=== PATIENT | female | born 1940 | race Caucasian/White ===

== ENCOUNTER → 2017-03-17 | Outpatient (CLI) | payer OTHER ==
[~2017-03-17] MED LIST: AMBI10TA PO; AMLO5TAB96 PO; CHLORHEXIDINE GLUCONATE 2 % 1 PACK (2 CLOTHS) TOPICAL PRN; LACTATED RINGER'S 1000 ML IV PRN; METOPROLOL TARTRATE 25 MG TAB PO PRN; POVIDONE IODINE 5% (ANTISEPSIS KIT) 4 APPLICATIONS EACH NARE PRN; PRIL20CA PO; SODIUM CHLORID 0.9% 500 ML IV PRN
== END ==
LOC: HEND 06:47
PROVIDERS: ATTEND Hospitalist
DX: R13.10 Dysphagia, unspecified (principal); K22.4 Dyskinesia of esophagus
CPT/HCPCS: 91010

== ENCOUNTER 2017-05-06 13:20 | Emergency (ER) | payer OTHER ==
[~2017-05-06] VITALS: Ht 162.6 cm; Wt 68.0 kg
[~2017-05-06 13:20] MED LIST changes: -CHLORHEXIDINE GLUCONATE 2 % 1 PACK (2 CLOTHS) TOPICAL PRN; -LACTATED RINGER'S 1000 ML IV PRN; -METOPROLOL TARTRATE 25 MG TAB PO PRN; -POVIDONE IODINE 5% (ANTISEPSIS KIT) 4 APPLICATIONS EACH NARE PRN; -SODIUM CHLORID 0.9% 500 ML IV PRN
[2017-05-06 13:57] VITALS: BP 161/73; PULSE 79; RESP 17; TEMP 97.9; O2SAT 96
[2017-05-06] MEDS ORDERED: DEXAMETHASONE SOD PHOS 20 MG/5 ML VIAL IM ONE (14:30)
[2017-05-06] MEDS ORDERED: KETOROLAC TROMETHAMINE 30 MG/ML (IVP) VIAL IV PUSH ONE (14:30)
[2017-05-06] MEDS ORDERED: ORPHENADRINE INJ 60 MG/2 ML AMP IV ONE (14:30)
[2017-05-06 15:52] LABS: BILIRUBIN, URINE NEG (NEG); BLOOD, URINE NEG (NEG); GLUCOSE,URINE NEG (NEG); KETONE, URINE NEG (NEG); NITRITE,URINE NEG (NEG); PH, URINE 5.5 (5.0-8.5); SQUAMOUS EPITHELIAL CELL URINE 2 /hpf (0-5); URINE COLOR LIGHT-YELLOW (YELLW/STRAW); URINE LEUKOCYTE ESTERASE TRACE (NEG)
--- NOTE | 2017-05-06 15:58 | PD ---
HPI Chief Complaint: Back/ Neck Pain or Injury Time Seen by Provider: 14:19 Travel History International Travel<30 days: No Contact w/Intl Traveler<30days: No Traveled to known affect area: No History of Present Illness HPI Patient is a 77-year-old female presenting to the emergency room for evaluation of low back pain. Patient states it started 3 weeks ago, there is no preceding injury or trauma. Patient reports that she was unable to see her primary doctor and was sent to the emergency department for evaluation. Patient denies any numbness, weakness in extremities, there is no bladder or bowel incontinence , no radiation of pain down her legs. She denies any fevers or chills. She further denies any dysuria. Patient states the pain just started, is localized to the lower back just over the hips and radiates down to her tailbone. Pain is worse with movement, symptom onset was gradual, symptom severity is moderate , there are no alleviating factors. Pain is exacerbated with movement. Patient has tried tramadol with no relief of her symptoms. PFSH Past Medical History Diabetes: Yes Patient Takes Glucophage: Yes (METFORMIN BID ) Endocrine: No Gastrointestinal Disorders: Yes Genitourinary: No Hepatitis: No Hiatal Hernia: Yes Hypertension: Yes Immune Disorder: No Medical other: Yes Musculoskeletal: Yes (MUSCLE PAIN) Neurologic: No Psychiatric: No Reproductive: No Respiratory: No Thyroid Disease: No Past Surgical History Abdominal Surgery: No AICD: No Cardiac Surgery: No Ear Surgery: No Endocrine Surgery: No Eye Surgery: No Genitourinary Surgery: No Gynecologic Surgery: No Joint Replacement: No Oral Surgery: No Pacemaker: No Thoracic Surgery: No Other Surgery: Yes Social History Alcohol Use: No Tobacco Use: No Substance Use: No Allergies-Medications (Allergen,Severity, Reaction): Coded Allergies: No Known Allergies (Unverified Adverse Reaction, Unknown, 05/06/17) Reported Meds & Prescriptions Reported Meds & Active Scripts Active Review of Systems Except as stated in HPI: all other systems reviewed are Neg Gastrointestinal: No: Abdominal Pain Musculoskeletal: Positive: Myalgias, Cramping, Pain Neurologic: No: Focal Abnormalities, Paresthesia, Sensory Disturbance Physical Exam Narrative GENERAL: Well-developed, well-nourished, alert elderly female. Presenting in no acute distress. SKIN: Warm and dry. HEAD: Atraumatic. Normocephalic. EYES: Pupils equal and round. No scleral icterus. No injection or drainage. ENT: No nasal bleeding or discharge. Mucous membranes pink and moist. NECK: Trachea midline. No JVD. CARDIOVASCULAR: Regular rate and rhythm. RESPIRATORY: No accessory muscle use. Clear to auscultation. Breath sounds equal bilaterally. GASTROINTESTINAL: Abdomen soft, non-tender, nondistended. Hepatic and splenic margins not palpable. MUSCULOSKELETAL: Extremities without clubbing, cyanosis, or edema. No obvious deformities. Mild tenderness to palpation paraspinal musculature in the lumbar region. NEUROLOGICAL: Awake and alert. No obvious cranial nerve deficits. Motor grossly within normal limits. Five out of 5 muscle strength in the arms and legs. Normal speech. PSYCHIATRIC: Appropriate mood and affect; insight and judgment normal. Data Data Last Documented VS Vital Signs Date Time Temp Pulse Resp B/P (MAP) Pulse Ox O2 Delivery O2 Flow Rate FiO2 05/06/17 13:57 97.9 79 17 161/73 (102) [address] Lumb Spine W/O Contrast (05/06/17 ) Ct Pelvis W/O Iv Contrast (05/06/17 ) Iv Access Insert/Monitor (05/06/17 14:30) Urinalysis - C+S If Indicated (05/06/17 14:30) Ketorolac Inj (Toradol Inj) (05/06/17 14:30) Orphenadrine Inj (Norflex Inj) (05/06/17 14:30) Dexamethasone Inj (Decadron Inj) (05/06/17 14:30) Labs Laboratory Tests Test 05/06/17 14:45 Urine Color LIGHT-YELLOW Urine Turbidity CLEAR Urine pH 5.5 Urine Specific [place] 1.009 Urine Protein NEG mg/dL Urine Glucose (UA) NEG mg/dL Urine Ketones NEG mg/dL Urine Occult Blood NEG Urine Nitrite NEG Urine Bilirubin NEG Urine Urobilinogen LESS THAN 2.0 MG/DL Urine Leukocyte Esterase TRACE Urine RBC LESS THAN 1 /hpf Urine WBC 1 /hpf Urine Squamous Epithelial Cells 2 /hpf Microscopic Urinalysis Comment CULT NOT INDICATED MDM Medical Decision Making Medical Screen Exam Complete: Yes Emergency Medical Condition: Yes Interpretation(s) Laboratory Tests Test 05/06/17 14:45 Urine Color LIGHT-YELLOW Urine Turbidity CLEAR Urine pH 5.5 Urine Specific [place] 1.009 Urine Protein NEG mg/dL Urine Glucose (UA) NEG mg/dL Urine Ketones NEG mg/dL Urine Occult Blood NEG Urine Nitrite NEG Urine Bilirubin NEG Urine Urobilinogen LESS THAN 2.0 MG/DL Urine Leukocyte Esterase TRACE Urine RBC LESS THAN 1 /hpf Urine WBC 1 /hpf Urine Squamous Epithelial Cells 2 /hpf Microscopic Urinalysis Comment CULT NOT INDICATED Vital Signs Date Time Temp Pulse Resp B/P (MAP) Pulse Ox O2 Delivery O2 Flow Rate FiO2 05/06/17 13:57 97.9 79 17 161/73 (102) 96 Differential Diagnosis Muscle strain versus muscle spasm versus radiculopathy versus degenerative disc disease versus less likely fracture versus other Narrative Course Patient is well-appearing 77-year-old female presenting for evaluation of mid to lower back pain. There are no focal deficits on exam. Patient's vital signs are stable. Exam appears consistent with muscular skeletal strain. Patient is only taken Tylenol with no improvement. Will check a urinalysis to rule out UTI, CT scans ordered and pending. Patient was given Norflex and Toradol for pain. CT scan lumbar spine shows minimal diffuse disc bulges at L1-L2, L2-L3, L3-L4, L4-L5, and L5-S1 without spinal stenosis or significant neural foraminal narrowing. Incidentally there is a 2.3 cm left renal cyst. CT scan of the pelvis shows degenerative changes of lower lumbar spine. No acute abnormality is evident. Urinalysis unremarkable. Patient reports improvement in her symptoms after administration of Toradol, Norflex and dexamethasone. She was encouraged to follow-up with her primary doctor, continue gentle range of motion exercises, apply warm heat, avoid bed rest. She is encouraged to take medications as directed. She was encouraged to return to emergency department any new or worsening symptoms. Patient was reassured at this time that there were no acute findings. Patient has been verbalized understanding of discharge instructions. Patient stable for discharge. Diagnosis Primary Impression: Bulging lumbar disc Additional Impression: Back pain Qualified Codes: M54.9 - Dorsalgia, unspecified Referrals: Primary Care Physician 1 week Patient Instructions: Back Pain (ED), Degenerative Disc Disease (ED), General Instructions Additional Instructions: Follow-up with your primary doctor Continue range of motion exercises, avoid bed rest, avoid exacerbating activities, apply warm heat Return to emergency department for any new or worsening symptoms Take medications as directed Med/Other Pt SpecificInfo: Prescription(s) given Scripts Cyclobenzaprine (Flexeril) 10 Mg Tab 10 MG PO TID Y for MUSCLE SPASM, #21 TAB 0 Refills Prov: Celina Wheeler 05/06/17 Meloxicam (Meloxicam) 15 Mg Tab 15 MG PO DAILY Y for PAIN SCALE 1 TO 10, #30 TAB 0 Refills Prov: Celina Wheeler 05/06/17 Disposition: 01 DISCHARGE HOME Condition: Stable Celina Wheeler May 06, 2017 15:58
--- NOTE | 2017-05-06 16:15 | RADRPT ---
EXAM DATE/TIME: 05/06/2017 15:54 [facility] COMPARISON: No previous studies available for comparison. INDICATIONS : Bilateral lower back pain radiating down to buttocks. ORAL CONTRAST: No oral contrast ingested. RADIATION DOSE: 11.02 CTDIvol (mGy) MEDICAL HISTORY : Hypertension. Hernia, hiatal. diabetes SURGICAL HISTORY : None. ENCOUNTER: Initial ACUITY: 1 day PAIN SCALE: 6/10 LOCATION: Bilateral Lower back TECHNIQUE: Volumetric scanning of the pelvis was performed. Using automated exposure control and adjustment of the mA and/or kV according to patient size, radiation dose was kept as low as reasonably achievable t o obtain optimal diagnostic quality images. DICOM format image data is available electronically for review and comparison. FINDINGS: BOWEL/MESENTERY: The visualized small and large bowel demonstrate no acute abnormality. There is no free fluid. BLADDER: There is no wall thickening or mass. RETROPERITONEUM: There is no aneurysm or lymphadenopathy. REPRODUCTIVE: Within normal limits. INGUINAL: There is no lymphadenopathy or hernia. MUSCULOSKELETAL: There are mild degenerative changes in the facet joints at L4/5 and L5/S1. The osseous structures are otherwise intact. No acute fracture is seen. CONCLUSION: Degenerative changes of the lower lumbar spine. No acute abnormality is evident. Donte Gannon MD on May 06, 2017 at 16:10 Board Certified Radiologist. This report was verified electronically.
--- NOTE | 2017-05-06 16:28 | RADRPT ---
EXAM DATE/TIME: 05/06/2017 15:54 [facility] COMPARISON: No previous studies available for comparison. INDICATIONS : Bilateral lower back pain radiating down to buttocks. RADIATION DOSE: 19.00 CTDIvol (mGy) MEDICAL HISTORY : Hypertension. Hernia, hiatal. diabetes SURGICAL HISTORY : None. ENCOUNTER: Initial ACUITY: 1 day PAIN SCALE: 6/10 LOCATION: Bilateral lower back TECHNIQUE: Volumetric scanning of the lumbar spine was performed. Multiplanar reconstructions in the sagittal, coronal and oblique axial planes were performed. Using automated exposure control and adjustment of the mA and/or kV according to patient size, radiation dose was kept as low as reasonably achievable t o obtain optimal diagnostic quality images. DICOM format image data is available electronically for review and comparison. FINDINGS: VERTEBRAE: Normal vertebral body height. ALIGNMENT: No evidence of subluxation. T12-L1: The thecal sac has a normal diameter. No evidence of disc bulge or protrusion. The neural foramina are patent bilaterally. L1-L2: The thecal sac has a normal diameter. Minimal diffuse disc bulge is noted. No evidence of disc protr usion. The neural foramina are patent bilaterally. L2-L3: The thecal sac has a normal diameter. Minimal diffuse disc bulge is noted. No evidence of disc protr usion. The neural foramina are patent bilaterally. L3-L4: The thecal sac has a normal diameter. Minimal diffuse disc bulge is noted. No evidence of disc protr usion. The neural foramina are patent bilaterally. L4-L5: The thecal sac has a normal diameter. Minimal diffuse disc bulge is noted. No evidence of disc protr usion. The neural foramina are patent bilaterally. L5-S1: The thecal sac has a normal diameter. Minimal diffuse disc bulge is noted. No evidence of disc protr usion. The neural foramina are patent bilaterally. CONCLUSION: 1. Minimal diffuse disc bulges at L1-2, L2-3, L3-4, 4-5 and L5-S1 without spinal stenosis or signific ant neural foraminal narrowing. 2. 2.3 cm left renal cyst. Santhosh Armstrong MD on May 06, 2017 at 16:24 Board Certified Radiologist. This report was verified electronically.
[2017-05-06] MEDS ORDERED: CYCL10TA PO (16:49)
[2017-05-06] MEDS ORDERED: MELO15TA20 PO (16:49)
== END 2017-05-06 17:12 | disposition home or self-care (01) ==
LOC: NEPE 13:20
DX: M51.26 Other intervertebral disc displacement, lumbar region (principal); M54.9 Dorsalgia, unspecified; E11.9 Type 2 diabetes mellitus without complications; I10 Essential (primary) hypertension
CPT/HCPCS: 72131; 72192; 81001; 96372; 96374; 96375; 99284; J1100; J1885; J2360

== ENCOUNTER → 2017-07-16 | Outpatient (CLI) | payer OTHER ==
[~2017-07-16] VITALS: Ht 162.6 cm; Wt 68.4 kg
[~2017-07-16] MED LIST changes: -AMBI10TA PO; +AMBI5TAB PO; +AMLO5TAB2 PO; -AMLO5TAB96 PO; +BETH10TA2 PO; +CYCL10TA PO; +GABA300C5 PO; +GABA600T PO; +HYDR-3516 PO; +LIDOCAINE HCL 1% PF 5 ML SYRINGE OTHER ONE; +LOSA25TA PO; +MELO15TA20 PO; +METF500T PO; +OMEP20TA93 PO; +PANT20TA2 PO; -PRIL20CA PO; +PROPOFOL 200 MG/20 ML AMP IV ONE; +TRAZ50TA12 PO; +XARE15TA PO; +XARE20TA PO
--- NOTE | 2017-07-16 13:04 | PD.PROCEDR ---
GI Procedure PROCEDURE PERFORMED EGD followed by endoscopic ultrasound with fine-needle aspiration INDICATION FOR PROCEDURE Dilated pancreatic duct PROCEDURE: The procedure, risks and benefits were discussed with Patient/POA and informed consent was obtained. Anesthesia sedated Patient with Diprivan. Patient was placed in the left lateral decubitus position. EGD: The Pentax videoscope was introduced through the oropharynx and advanced to the second portion of the duodenum under direct visualization. Retroflexion was performed in the stomach. FINDINGS: The esophagus this was normal The stomach this was normal The duodenum this was normal EUS: The Pentax videoscope was introduced through the oropharynx and advanced to the second portion of the duodenum . FINDINGS: The pancreatic parenchyma was carefully evaluated the pancreatic duct appeared to be dilated from the pancreatic neck to the tail the pancreatic body and tail appear to be unremarkable and within normal limits there was a small one by one mildly hypoechoic lesion of unclear significance abutting the portal vein but not invading in the portal vein appeared to be intact FNA was performed otherwise pancreatic head was unremarkable Common bile duct was unremarkable No lymphadenopathy ESTIMATED BLOOD LOSS: Minimal SPECIMENS REMOVED: Pancreatic biopsy COMPLICATIONS: None IMPRESSION: Dilated pancreatic duct Pancreatic mass PLAN: Await pathology Follow-up in clinic in 2-3 weeks Kirill Kelley MD July 16, 2017 13:04
[2017-07-16 13:15] VITALS: BP 170/77; PULSE 71; RESP 18; TEMP 97.2; O2SAT 98
--- NOTE | 2017-07-17 07:22 | EKG ---
Date Performed: 07/16/2017 Time Performed: 10:03:17 PTAGE: 77 years EKG: Sinus rhythm NORMAL ECG PREVIOUS TRACING : 08/18/2011 12.41 DOCTOR: Michael Figueroa Interpretating Date/Time 07/17/2017 07:19:36
== END ==
LOC: HSDC 08:52 → EDSTATUS 11:00
PROVIDERS: ATTEND Internal Medicine Gastroenterology
DX: K86.89 Other specified diseases of pancreas (principal); I10 Essential (primary) hypertension; E11.9 Type 2 diabetes mellitus without complications; K44.9 Diaphragmatic hernia without obstruction or gangrene
CPT/HCPCS: 43242; 88112; 88305; 93005

== ENCOUNTER 2017-07-19 09:16 | Inpatient (IN) | payer OTHER, MEDICARE ==
[2017-07-19] VITALS (8 sets, daily range): BP systolic 131–185; BP diastolic 63–84; PULSE 71–86; RESP 16–20; TEMP 97.9–98.9; O2SAT 94–96
[~2017-07-19] VITALS: Ht 162.6 cm; Wt 71.0 kg
[~2017-07-19 09:16] MED LIST changes: -GABA300C5 PO; -HYDR-3516 PO; -LIDOCAINE HCL 1% PF 5 ML SYRINGE OTHER ONE; -PANT20TA2 PO; -PROPOFOL 200 MG/20 ML AMP IV ONE; -XARE15TA PO; -XARE20TA PO
[2017-07-19] MEDS ORDERED: IOHEXOL 350 MG/ML 10 ML VIAL (for RAD DIAG) IVCONTRAST ONE (09:17)
[2017-07-19] MEDS ORDERED: SODIUM CHLORIDE 0.9% FLUSH 10 ML FLUSH IV FLUSH PRN ×2 (09:45→14:00)
[2017-07-19] MEDS ORDERED: GABA300C5 PO (10:03)
[2017-07-19] MEDS ORDERED: PANT20TA2 PO (10:03)
[2017-07-19] MEDS ORDERED: MORPHINE SULFATE 4 MG/ML INJ IV ONE (10:15)
[2017-07-19] MEDS ORDERED: MORPHINE SULFATE 2 MG/ML SYRINGE IV PUSH ONE (10:15)
[2017-07-19 10:30] LABS: AUTOMATED NEUTROPHIL # 7.3 TH/MM3 (1.8-7.7); BASOPHIL % 0.2 % (0.0-2.0); EOSINOPHIL # 0.2 TH/MM3 (0-0.4); EOSINOPHIL % 1.6 % (0.0-4.0); HEMATOCRIT 41.6 % (35.0-46.0); HEMOGLOBIN 13.8 GM/DL (11.6-15.3); LYMPH % 19.9 % (9.0-44.0); LYMPHOCYTE # 2.1 TH/MM3 (1.0-4.8); MEAN CELL VOLUME 86.4 FL (80.0-100.0); MEAN CORPUSCULAR HEMOGLOBIN 28.8 PG (27.0-34.0); MEAN CORPUSCULAR HGB CONC 33.3 % (32.0-36.0); MONO % 7.1 % (0.0-8.0); MONOCYTE # 0.7 TH/MM3 (0-0.9); NEUT % 71.2 % (16.0-70.0); PLATELET COUNT 231 TH/MM3 (150-450); RED BLOOD COUNT 4.81 MIL/MM3 (4.00-5.30); RED CELL DISTRIBUTION WIDTH 14.3 % (11.6-17.2); WHITE BLOOD COUNT 10.3 TH/MM3 (4.0-11.0)
--- NOTE | 2017-07-19 10:30 | PD ---
HPI Chief Complaint: Abdominal Pain Time Seen by Provider: 09:38 Travel History International Travel<30 days: No Contact w/Intl Traveler<30days: No Traveled to known affect area: No History of Present Illness HPI Patient is a 77-year-old female presents emergency department for evaluation of epigastric pain radiating up into her chest. Patient 3 days ago had a endoscopic ultrasound-guided biopsy of her pancreas as a mass was discovered she was being worked up for back pain. Patient states occasionally chest pain spasms and radiates to her back. She states initially she went to an orthopedic surgeon who did a CAT scan diagnosing her only with degenerative disc disease, she insisted on an MRI which revealed a pancreas mass. She was referred here by Dr. Kelley for evaluation and she is having increased abdominal pain no nausea no vomiting she has been able to tolerate p.o. but she has not eaten this morning because she knew she was coming in, no shortness of breath no blood in the stool no diarrhea no weight loss peer PFSH Past Medical History Cancer: No Cardiovascular Problems: No Diabetes: Yes Patient Takes Glucophage: Yes Endocrine: No Gastrointestinal Disorders: Yes Genitourinary: No Hepatitis: No Hiatal Hernia: Yes Hypertension: Yes Immune Disorder: No Medical other: Yes Musculoskeletal: Yes (MUSCLE PAIN) Neurologic: No Psychiatric: No Reproductive: No Respiratory: No Thyroid Disease: No ?: Not Past Surgical History Abdominal Surgery: No AICD: No Cardiac Surgery: No Ear Surgery: No Endocrine Surgery: No Eye Surgery: No Genitourinary Surgery: No Gynecologic Surgery: Yes (COLD KNIFE BIOPSY) Joint Replacement: No Oral Surgery: No Pacemaker: No Thoracic Surgery: No Other Surgery: Yes Social History Alcohol Use: No Tobacco Use: No Substance Use: No Allergies-Medications (Allergen,Severity, Reaction): Coded Allergies: No Known Allergies (Unverified Allergy, Unknown, 07/16/17) Reported Meds & Prescriptions Reported Meds & Active Scripts Active Flexeril (Cyclobenzaprine HCl) 10 Mg Tab 10 Mg PO TID PRN Reported Pantoprazole (Pantoprazole Sodium) 20 Mg Tab 20 Mg PO BID Gabapentin 300 Mg Cap 300 Mg PO DAILY Ambien (Zolpidem Tartrate) 5 Mg Tab 5 Mg PO HS PRN Trazodone (Trazodone HCl) 50 Mg Tab 25 Mg PO HS Amlodipine (Amlodipine Besylate) 5 Mg Tab 5 Mg PO HS Metformin (Metformin HCl) 500 Mg Tab 500 Mg PO HS With a meal Gabapentin 600 Mg Tab 600 Mg PO BID Losartan (Losartan Potassium) 25 Mg Tab 25 Mg PO DAILY Bethanechol 10 Mg Tab 10 Mg PO BID Metformin (Metformin HCl) 500 Mg Tab 1,000 Mg PO DAILY Review of Systems Except as stated in HPI: all other systems reviewed are Neg Physical Exam Narrative GENERAL: Well-developed well-nourished no obvious distress, quite pleasant peer SKIN: Focused skin assessment warm/dry. HEAD: Atraumatic. Normocephalic. EYES: Pupils equal and round. No scleral icterus. No injection or drainage. ENT: No nasal bleeding or discharge. Mucous membranes pink and moist. NECK: Trachea midline. No JVD. CARDIOVASCULAR: Regular rate and rhythm. No murmur appreciated. RESPIRATORY: No accessory muscle use. Clear to auscultation. Breath sounds equal bilaterally. GASTROINTESTINAL: Abdomen soft, the abdomen is really minimally tender throughout all 4 quadrants but particularly the epigastric region. There is no rebound no percussive tenderness, nondistended. Hepatic and splenic margins not palpable. MUSCULOSKELETAL: No obvious deformities. No clubbing. No cyanosis. No edema. NEUROLOGICAL: Awake and alert. No obvious cranial nerve deficits. Motor grossly within normal limits. Normal speech. PSYCHIATRIC: Appropriate mood and affect; insight and judgment normal. Data Data Last Documented VS Vital Signs Date Time Temp Pulse Resp B/P (MAP) Pulse Ox O2 Delivery O2 Flow Rate FiO2 07/19/17 13:07 19 07/19/17 10:03 86 185/84 (117) 96 Room Air 07/19/17 09:32 98.9 Orders Orders Complete Blood Count With Diff (07/19/17 09:41) Comprehensive Metabolic Panel (07/19/17 09:41) Lipase (07/19/17 09:41) Iv Access Insert/Monitor (07/19/17 09:41) Ecg Monitoring (07/19/17 09:41) Oximetry (07/19/17 09:41) Sodium Chloride 0.9% Flush (Ns Flush) (07/19/17 09:45) Electrocardiogram (07/19/17 09:41) Morphine Inj (Morphine Inj) (07/19/17 10:15) Cta Thor Abd Aorta W Iv C W3d (07/19/17 ) Morphine Inj (Morphine Inj) (07/19/17 10:15) Morphine Inj (Morphine Inj) (07/19/17 12:00) Iohexol 350 Inj (Omnipaque 350 Inj) (07/19/17 09:17) Act Partial Throm Time (Ptt) (07/19/17 13:44) Prothrombin Time / Inr (Pt) (07/19/17 13:44) Admit Order (Ed Use Only) (07/19/17 ) Labs Laboratory Tests Test 07/19/17 09:50 White Blood Count 10.3 TH/MM3 Red Blood Count 4.81 MIL/MM3 Hemoglobin 13.8 GM/DL Hematocrit 41.6 % Mean Corpuscular Volume 86.4 FL Mean Corpuscular Hemoglobin 28.8 PG Mean Corpuscular Hemoglobin Concent 33.3 % Red Cell Distribution Width 14.3 % Platelet Count 231 TH/MM3 Mean Platelet Volume 9.0 FL Neutrophils (%) (Auto) 71.2 % Lymphocytes (%) (Auto) 19.9 % Monocytes (%) (Auto) 7.1 % Eosinophils (%) (Auto) 1.6 % Basophils (%) (Auto) 0.2 % Neutrophils # (Auto) 7.3 TH/MM3 Lymphocytes # (Auto) 2.1 TH/MM3 Monocytes # (Auto) 0.7 TH/MM3 Eosinophils # (Auto) 0.2 TH/MM3 Basophils # (Auto) 0.0 TH/MM3 CBC Comment DIFF FINAL Differential Comment Blood Urea Nitrogen 13 MG/DL Creatinine 0.94 MG/DL Random Glucose 139 MG/DL Total Protein 8.6 GM/DL Albumin 3.9 GM/DL Calcium Level 9.6 MG/DL Alkaline Phosphatase 62 U/L Aspartate Amino Transf (AST/SGOT) 38 U/L Alanine Aminotransferase (ALT/SGPT) 39 U/L Total Bilirubin 0.6 MG/DL Sodium Level 138 MEQ/L Potassium Level 4.8 MEQ/L Chloride Level 103 MEQ/L Carbon Dioxide Level 27.3 MEQ/L Anion Gap 8 MEQ/L Estimat Glomerular Filtration Rate 58 ML/MIN Lipase 5965 U/L [facility] Medical Decision Making Medical Screen Exam Complete: Yes Emergency Medical Condition: Yes Differential Diagnosis Pancreatic mass, postprocedural pancreatitis, aortic dissection, dehydration, esophageal perforation, pancreatic hematoma Narrative Course Patient was room to the emergency department, discussed with Dr. Benoit about the patient's workup and with her chest pain radiating to her back spasmodic and intermittent I think aortic dissection needs to be considered as well. I have recommended aortic protocol CT scan, discussed this with radiology and they states that this will show a hematoma in the pancreas which is Dr. Laboy' s primary concern. The patient's labs do show an elevated lipase at 5900 consistent with a post procedural pancreatitis. She has not had any vomiting and appears fairly well-hydrated in the emergency department. Radiology report does not reveal any obvious pancreatic mass, this will have to be further looked at by Dr. Givens's group. However the CT scan did show small volume pulmonary embolism. Patient was ultimately discarded with Dr. Deanne Brantley, I am still waiting the coags, he will anticoagulate the patient likely with Lovenox given her normal kidney function. She will be admitted to the hospital consultation with Dr. Laboy. All the results were discussed with the patient and she is agreeable to plan peer Diagnosis Primary Impression: Pancreatitis Qualified Codes: K85.00 - Idiopathic acute pancreatitis without necrosis or infection Additional Impression: Pulmonary embolus Qualified Codes: I26.99 - Other pulmonary embolism without acute cor pulmonale Admitting Information Admitting Physician Requests: Admit Condition: Stable Santhosh Boswell MD July 19, 2017 10:30
[2017-07-19 11:01] LABS: ALKALINE PHOSPHATASE 62 U/L (45-117); ALT (GPT) 39 U/L (10-53); TOTAL BILIRUBIN ADULT 0.6 MG/DL (0.2-1.0); TOTAL PROTEIN 8.6 GM/DL (6.4-8.2)
[2017-07-19 11:08] LABS: ALBUMIN 3.9 GM/DL (3.4-5.0); AST (GOT) 38 U/L (15-37); BICARBONATE 27.3 MEQ/L (21.0-32.0); BLOOD UREA NITROGEN 13 MG/DL (7-18); CALCIUM 9.6 MG/DL (8.5-10.1); CHLORIDE 103 MEQ/L (98-107); CREATININE 0.94 MG/DL (0.50-1.00); GLOMERULAR FILTRATION RATE 58 ML/MIN (>89); GLUCOSE,RANDOM 139 MG/DL (74-106); SODIUM (NA) 138 MEQ/L (136-145)
[2017-07-19] MEDS ORDERED: MORPHINE SULFATE 4 MG/ML INJ IV PUSH ONE (12:00)
--- NOTE | 2017-07-19 13:29 | RADRPT ---
EXAM DATE: 07/19/2017 1:15 PM EDT AGE/SEX: 77 years / Female INDICATIONS: Chest and epigastric pain for 3 days. CLINICAL DATA: This is the patient's initial encounter. Patient reports that signs and symptoms have been present for 1 day and indicates a pain score of 6/10. MEDICAL/SURGICAL HISTORY: Hypertension. Diabetes. Gastroesophageal reflux disease. Hiatal hernia . None. RADIATION DOSE: 6.80 CTDI (mGy) COMPARISON: None. TECHNIQUE: Volumetric scanning was performed using a multi-row detector CT scanner during bolus infu ashley of 99 ml Omnipaque 350 (iohexol) nonionic water-soluble contrast as a single exam dose. The da ta was post processed with a variety of visualization algorithms including full volume maximum intens ity projection, multi-planar sliding thin slab reformation, curved planar reformation, and surface re ndering techniques. Using automated exposure control and adjustment of the mA and/or kV according to patient size, radiation dose was kept as low as reasonably achievable to obtain optimal diagnostic q uality images. FINDINGS: THORACIC/ABDOMINAL AORTA: The aorta is normal in caliber and course. Scattered calcified atheromatous plaque. No dissection, aneurysm, or hemodynamically significant stenosis. Inflow vessels are patent bilaterally. The celiac, SMA, CRUZ, and renal arteries are patent. 2 renal arteries supply the right k idney. A single renal artery supplies the left. HEART AND MEDIASTINUM: There is a filling defect involving the proximal segmental branches of the rig ht lower lobe consistent with acute pulmonary emboli. The remaining pulmonary arteries are unremarkab le. Heart is normal in size. No pericardial effusion. No mass or adenopathy. LUNG PARENCHYMA: Clear lungs. No infiltrate, effusion, or mass. OTHER STRUCTURES: Abdominal visceral structures are unremarkable. Uterus is to the left of midline. A small degenerating fibroid seen involving the right anterolateral uterine body. Small cortical driss l cyst involving the left upper pole. CONCLUSION: 1. Small volume acute pulmonary emboli involving the right lower lobe. Aorta is normal in caliber. Electronically signed by: Boy Tirado MD 07/19/2017 1:28 PM EDT
--- NOTE | 2017-07-19 14:13 | EKG ---
Date Performed: 07/19/2017 Time Performed: 09:51:11 PTAGE: 77 years EKG: Sinus rhythm POSSIBLE INFERIOR MYOCARDIAL INFARCTION BORDERLINE ECG PREVIOUS TRACING : 07/16/2017 10.03 No significant change from previous tracing noted. DOCTOR: Axel Hyman Interpretating Date/Time 07/19/2017 14:12:14
[2017-07-19 14:36] LABS: PROTHROMBIN TIME - PATIENT 10.2 SEC (9.8-11.6)
[2017-07-19] MEDS: ENOXAPARIN SODIUM 80 MG/0.8 ML SYRINGE SQ SCH (14:55)
[2017-07-19] MEDS: SODIUM CHLOR 0.9% 1000 ML INJ 1,000 ML IV SCH (14:55)
[2017-07-19] MEDS ORDERED: GLUCAGON 1 MG/ML VIAL OTHER PRN (15:15)
[2017-07-19] MEDS ORDERED: DEXTROSE 50% IN WATER 50 ML VIAL(D50) IV PUSH PRN (15:15)
--- NOTE | 2017-07-19 15:24 | HHI.HP ---
[facility] Service [place] [facility] Primary Care Physician Seymour Kennedy MD Admission Diagnosis Pancreatitis, Pulmonary Embolism Diagnoses: Chief Complaint: Abdominal pain Travel History International Travel<30 Days: No Contact w/Intl Traveler <30 Da: No Traveled to Known Affected Are: No History of Present Illness 77-year-old female with a medical history significant for hypertension, diabetes , newly found pancreatic mass status post biopsy 3 days ago presented to the emergency room with complaint of midepigastric pain. Patient underwent endoscopic ultrasound-guided biopsy of a pancreatic mass 3 days ago. Patient reports pain started since the procedure. Workup in the emergency room shows pancreatitis and she is also positive for a right pulmonary embolus. She reports mild, intermittent shortness of breath but nothing that limits her regular activities. Review of Systems Constitutional: DENIES: Fever, Chills Respiratory: COMPLAINS OF: Shortness of breath (Mild, intermiitent. ), DENIES: Cough Gastrointestinal: COMPLAINS OF: Abdominal pain, DENIES: Nausea, Vomiting Musculoskeletal: COMPLAINS OF: Joint pain, Muscle aches Except as stated in HPI: all other systems reviewed are Neg Past Family Social History Past Medical History Hypertension Diabetes Pancreatic mass. Anxiety Chronic back pain Gastroparesis Past Surgical History Hand surgery Reported Medications Reported Meds & Active Scripts Active Flexeril (Cyclobenzaprine HCl) 10 Mg Tab 10 Mg PO TID PRN Reported Pantoprazole (Pantoprazole Sodium) 20 Mg Tab 20 Mg PO BID Gabapentin 300 Mg Cap 300 Mg PO DAILY Ambien (Zolpidem Tartrate) 5 Mg Tab 5 Mg PO HS PRN Trazodone (Trazodone HCl) 50 Mg Tab 25 Mg PO HS Amlodipine (Amlodipine Besylate) 5 Mg Tab 5 Mg PO HS Metformin (Metformin HCl) 500 Mg Tab 500 Mg PO HS With a meal Gabapentin 600 Mg Tab 600 Mg PO BID Losartan (Losartan Potassium) 25 Mg Tab 25 Mg PO DAILY Bethanechol 10 Mg Tab 10 Mg PO BID Metformin (Metformin HCl) 500 Mg Tab 1,000 Mg PO DAILY Allergies: Coded Allergies: No Known Allergies (Unverified Allergy, Unknown, 07/16/17) Family History Reviewed and found to be noncontributory. Social History Denies tobacco, or alcohol use. Physical Exam Vital Signs Vital Signs Date Time Temp Pulse Resp B/P (MAP) Pulse Ox O2 Delivery O2 Flow Rate FiO2 07/19/17 13:07 19 07/19/17 11:52 17 07/19/17 10:03 86 18 185/84 (117) 96 Room Air 07/19/17 09:32 98.9 84 20 165/74 (104) 95 Physical Exam GENERAL: This is a well-nourished, well-developed patient, in no apparent distress. SKIN: No rashes, ecchymoses or lesions. Cool and dry. HEAD: Atraumatic. Normocephalic. No temporal or scalp tenderness. EYES: Pupils equal round and reactive. Extraocular motions intact. No scleral icterus. No injection or drainage. ENT: Nose without bleeding, purulent drainage or septal hematoma. Throat without erythema, tonsillar hypertrophy or exudate. Uvula midline. Airway patent. NECK: Trachea midline. No JVD or lymphadenopathy. Supple, nontender, no meningeal signs. CARDIOVASCULAR: Regular rate and rhythm without murmurs, gallops, or rubs. RESPIRATORY: Clear to auscultation. Breath sounds equal bilaterally. No wheezes , rales, or rhonchi. GASTROINTESTINAL: Abdomen soft, tender to palpation in the midepigastric region. Bowel sounds normal. MUSCULOSKELETAL: Extremities without clubbing, cyanosis, or edema. No joint tenderness, effusion, or edema noted. No calf tenderness. Negative Homans sign bilaterally. NEUROLOGICAL: Awake and alert. Cranial nerves II through XII intact. Motor and sensory grossly within normal limits. Five out of 5 muscle strength in all muscle groups. Normal speech. Laboratory Laboratory Tests Test 07/19/17 09:50 07/19/17 14:10 White Blood Count 10.3 Red Blood Count 4.81 Hemoglobin 13.8 Hematocrit 41.6 Mean Corpuscular Volume 86.4 Mean Corpuscular Hemoglobin 28.8 Mean Corpuscular Hemoglobin Concent 33.3 Red Cell Distribution Width 14.3 Platelet Count 231 Mean Platelet Volume 9.0 Neutrophils (%) (Auto) 71.2 Lymphocytes (%) (Auto) 19.9 Monocytes (%) (Auto) 7.1 Eosinophils (%) (Auto) 1.6 Basophils (%) (Auto) 0.2 Neutrophils # (Auto) 7.3 Lymphocytes # (Auto) 2.1 Monocytes # (Auto) 0.7 Eosinophils # (Auto) 0.2 Basophils # (Auto) 0.0 CBC Comment DIFF FINAL Differential Comment Blood Urea Nitrogen 13 Creatinine 0.94 Random Glucose 139 Total Protein 8.6 Albumin 3.9 Calcium Level 9.6 Alkaline Phosphatase 62 Aspartate Amino Transf (AST/SGOT) 38 Alanine Aminotransferase (ALT/SGPT) 39 Total Bilirubin 0.6 Sodium Level 138 Potassium Level 4.8 Chloride Level 103 Carbon Dioxide Level 27.3 Anion Gap 8 Estimat Glomerular Filtration Rate 58 Lipase 5965 Prothrombin Time 10.2 Prothromb Time International Ratio 1.0 Activated Partial Thromboplast Time 26.8 Result Diagram: 07/19/17 0950 07/19/17 0950 Imaging Last Impressions Aorta CTA 07/19/17 0000 Signed Impressions: CONCLUSION: 1. Small volume acute pulmonary emboli involving the right lower lobe. Aorta i s normal in caliber. Caprini VTE Risk Assessment Caprini VTE Risk Assessment: Mod/High Risk (score >= 2) Caprini Risk Assessment Model Point Value = 1 Point Value = 2 Point Value = 3 Point Value = 5 Age 41-60 Minor surgery BMI > 25 kg/m2 Swollen legs Varicose veins or History of unexplained or recurrent spontaneous Oral contraceptives or hormone replacement Sepsis (< 1 month) Serious lung disease, including pneumonia (< 1 month) Abnormal pulmonary function Acute myocardial infarction Congestive heart failure (< 1 month) History of inflammatory bowel disease Medical patient at bed rest Age 61-74 Arthroscopic surgery Major open surgery (> 45 min) Laparoscopic surgery (> 45 min) Malignancy Confined to bed (> 72 hours) Immobilizing plaster cast Central venous access Age >= 75 History of VTE Family history of VTE Factor V Leiden Prothrombin [id number] Lupus anticoagulant Anticardiolipin antibodies Elevated serum homocysteine Heparin-induced thrombocytopenia Other congenital or acquired thrombophilia Stroke (< 1 month) Elective arthroplasty Hip, pelvis, or leg fracture Acute spinal cord injury (< 1 month) Prophylaxis Regimen Total Risk Factor Score Risk Level Prophylaxis Regimen 0-1 Low Early ambulation 2 Moderate Order ONE of the following: *Sequential Compression Device (SCD) *Heparin 5000 units SQ BID 3-4 Higher Order ONE of the following medications: *Heparin 5000 units SQ TID *Enoxaparin/Lovenox 40 mg SQ daily (WT < 150 kg, CrCl > 30 mL/min) *Enoxaparin/Lovenox 30 mg SQ daily (WT < 150 kg, CrCl > 10-29 mL/min) *Enoxaparin/Lovenox 30 mg SQ BID (WT < 150 kg, CrCl > 30 mL/min) AND/OR *Sequential Compression Device (SCD) 5 or more Highest Order ONE of the following medications: *Heparin 5000 units SQ TID (Preferred with Epidurals) *Enoxaparin/Lovenox 40 mg SQ daily (WT < 150 kg, CrCl > 30 mL/min) *Enoxaparin/Lovenox 30 mg SQ daily (WT < 150 kg, CrCl > 10-29 mL/min) *Enoxaparin/Lovenox 30 mg SQ BID (WT < 150 kg, CrCl > 30 mL/min) AND *Sequential Compression Device (SCD) Assessment and Plan Problem List: (1) Pulmonary embolus ICD Code: I26.99 - Other pulmonary embolism without acute cor pulmonale (2) Pancreatitis ICD Code: K85.90 - Acute pancreatitis without necrosis or infection, unspecified (3) Pancreatic mass ICD Code: K86.9 - Disease of pancreas, unspecified (4) Hypertension ICD Code: I10 - Essential (primary) hypertension (5) Diabetes ICD Code: E11.9 - Type 2 diabetes mellitus without complications Assessment and Plan 77-year-old female with a newly diagnosed pancreatic mass. Patient is status post endoscopic ultrasound-guided biopsy. She has developed pancreatitis. Workup also positive for right lobe pulmonary embolus. Pancreatitis/pancreatic mass: - Pancreatitis likely the result of EUS/biopsy. - Pain control. Supportive care with IV fluid. Keep n.p.o. for now. - Pathology is pending. - Consult gastroenterology. Pulmonary embolism: - Risk factors include possible malignancy. - We will treat with Lovenox 1 mg/kg every 12 hours. If malignancy workup negative, can likely transition to Xarelto. - Obtain LE ultrasound Diabetes: - Sliding scale insulin with Accu-Cheks. Hold metformin Hypertension: -Continue home dose antihypertensives. Discussed Condition With Dr. Andreia GALLARDO physician. Physician Certification 2 Midnight Certification Type: Admission for Inpatient Services Order for Inpatient Services The services are ordered in accordance with Medicare regulations or non- Medicare payer requirements, as applicable. In the case of services not specified as inpatient-only, they are appropriately provided as inpatient services in accordance with the 2-midnight benchmark. Estimated LOS (days): 3 days is the estimated time the patient will need to remain in the hospital, assuming treatment plan goals are met and no additional complications. Post-Hospital Plan: Home Brant Avila MD July 19, 2017 15:24
--- NOTE | 2017-07-19 16:01 | RADRPT ---
EXAM DATE: 07/19/2017 3:48 PM EDT AGE/SEX: 77 years / Female INDICATIONS: Pulmonary embolism. CLINICAL DATA: This is the patient's initial encounter. Patient reports that signs and symptoms have been present for 1 day and indicates a pain score of 0/10. MEDICAL/SURGICAL HISTORY: Hypertension. Hernia. Carpal tunnel. Diabetes. . Cold knife biopsy. COMPARISON: None. TECHNIQUE: Venous ultrasound of both lower extremities was performed from the inguinal ligament to t he proximal calf. Real-time, color Doppler and spectral tracing, compression and augmentation techni ques were used. FINDINGS: Right Leg: There is normal compressibility of the deep venous system from the inguinal region to the proximal calf. No echogenic clot is seen in the lumen of the common femoral, femoral, popliteal, an d posterior tibial veins. There is a normal response of the venous system to proximal and distal aug mentation and respiration. Left Leg: There is normal compressibility of the deep venous system from the inguinal region to the proximal calf. No echogenic clot is seen in the lumen of the common femoral, femoral, popliteal, and posterior tibial veins. There is a normal response of the venous system to proximal and distal augm entation and respiration. CONCLUSION: 1. The study is negative for bilateral lower extremity deep venous thrombosis. Electronically signed by: Boy Tirado MD 07/19/2017 3:59 PM EDT
[2017-07-19] MEDS: INSULIN ASPART SUPPLEMENTAL SCALE SQ SCH ×2 (16:13→20:07)
--- NOTE | 2017-07-19 17:15 | PD.CONS ---
HPI History of Present Illness This is a 77 year old pleasant female who presented to the emergency room for admission on 07/19/2017 with continued complaints of mid and upper abdominal pain up into the epigastric region. Onset approximately 3 days ago but states pain has not completely eased until she received pain meds in the emergency room. Patient notes EUS and biopsy of pancreatic mass this past , 3 days ago. Patient continues to have increased gas and burping, which does ease the gas pain but overall abdominal pain persist. Patient denies any family history of colon cancer or GI cancer. Patient uses no tobacco but does drink occasional wine every 2 months, no illicit drugs. Patient notes that she was having back pain when the pancreatic mass was discovered on another previous x- ray. Currently patient states she has some mild nausea but no vomiting no dysphasia and no heartburn. Currently being maintained with IV fluids 75 cc an hour. Labs show hemoglobin 13.8, WBC count 10.3, lipase level 5965, LFTs AST 38 , ALT 39. Chest CT shows small pulmonary emboli right lower lung. (Yaneth Hughes) PFSH Past Medical History Per the record and patient hypertension Diabetes Pancreatic mass. Anxiety Chronic back pain Gastroparesis Past Surgical History Hand surgery (Yaneth Hughes) Coded Allergies: No Known Allergies (Unverified Allergy, Unknown, 07/16/17) Medications Administered Medications Medications (Trade) Dose Ordered Sig/Sera Route PRN Reason Start Time Stop Time Status Last Admin Dose Admin Sodium Chloride 1,000 ml @ 75 mls/hr [id number] IV 07/19/17 13:53 07/19/17 14:55 Enoxaparin Sodium (Lovenox Inj) 70 mg Q12H SQ 07/19/17 15:00 07/19/17 14:55 Family History Reviewed and found to be noncontributory. No family history of colon or GI cancer Social History Denies tobacco, or alcohol use. (Yaneth Hughes) Review of Systems Gastrointestinal: COMPLAINS OF: Abdominal pain, Nausea (Yaneth Hughes) GI Exam Vitals I&O Vital Signs Date Time Temp Pulse Resp B/P (MAP) Pulse Ox O2 Delivery O2 Flow Rate FiO2 07/19/17 16:06 98.0 74 18 154/67 (96) 94 07/19/17 15:53 07/19/17 15:26 71 19 141/63 (89) 95 Room Air 07/19/17 13:07 19 07/19/17 11:52 17 07/19/17 10:03 86 18 185/84 (117) 96 Room Air 07/19/17 09:32 98.9 84 20 165/74 (104) 95 Imaging Last Impressions Lower Extremity Ultrasound 07/19/17 0000 Signed Impressions: CONCLUSION: 1. The study is negative for bilateral lower extremity deep venous thrombosis. Aorta CTA 07/19/17 0000 Signed Impressions: CONCLUSION: 1. Small volume acute pulmonary emboli involving the right lower lobe. Aorta i s normal in caliber. Laboratory Test 07/19/17 09:50 07/19/17 14:10 White Blood Count 10.3 TH/MM3 Red Blood Count 4.81 MIL/MM3 Hemoglobin 13.8 GM/DL Hematocrit 41.6 % Mean Corpuscular Volume 86.4 FL Mean Corpuscular Hemoglobin 28.8 PG Mean Corpuscular Hemoglobin Concent 33.3 % Red Cell Distribution Width 14.3 % Platelet Count 231 TH/MM3 Mean Platelet Volume 9.0 FL Neutrophils (%) (Auto) 71.2 % Lymphocytes (%) (Auto) 19.9 % Monocytes (%) (Auto) 7.1 % Eosinophils (%) (Auto) 1.6 % Basophils (%) (Auto) 0.2 % Neutrophils # (Auto) 7.3 TH/MM3 Lymphocytes # (Auto) 2.1 TH/MM3 Monocytes # (Auto) 0.7 TH/MM3 Eosinophils # (Auto) 0.2 TH/MM3 Basophils # (Auto) 0.0 TH/MM3 CBC Comment DIFF FINAL Differential Comment Blood Urea Nitrogen 13 MG/DL Creatinine 0.94 MG/DL Random Glucose 139 MG/DL Total Protein 8.6 GM/DL Albumin 3.9 GM/DL Calcium Level 9.6 MG/DL Alkaline Phosphatase 62 U/L Aspartate Amino Transf (AST/SGOT) 38 U/L Alanine Aminotransferase (ALT/SGPT) 39 U/L Total Bilirubin 0.6 MG/DL Sodium Level 138 MEQ/L Potassium Level 4.8 MEQ/L Chloride Level 103 MEQ/L Carbon Dioxide Level 27.3 MEQ/L Anion Gap 8 MEQ/L Estimat Glomerular Filtration Rate 58 ML/MIN Lipase 5965 U/L Prothrombin Time 10.2 SEC Prothromb Time International Ratio 1.0 RATIO Activated Partial Thromboplast Time 26.8 SEC Physical Examination HEENT: normocephalic; atraumatic; no jaundice. Speech understandable NECK: Neck is supple, no edema CHEST: Mild diminished breath sounds especially on the right lower lobe CARDIAC: Regular rate and rhythm, no murmur ABDOMEN: Soft, round, minimal distention mild tympany, palpable tenderness mid abdomen gastric and epigastric regions; bowel sounds are present in all four quadrants. EXTREMITIES: No clubbing, cyanosis, or edema. SKIN: Normal; no rash; no jaundice. ONLINE ACTIVIST: No focal deficits; alert and oriented times three. (Yaneth Hughes) Assessment and Plan Plan Pancreatitis Abdominal pain, mid abdomen, gastric area, epigastric Nausea but no vomiting Pancreatic mass 77-year-old female came to the ER for further evaluation on 07/19/2017 for epigastric and gastric pain which has had an onset of 3 days ago. Patient had EUS and pancreatic mass biopsy done and noted pain postop. She also notes some nausea but no obvious vomiting, no dysphasia. Patient had increased belching and gas which was relieving off and known after ambulating but pain became unbearable to the point she needed further observation today. No family history of colon cancer no tobacco occasional wine social every 2 months no illicit drugs. Current labs show hemoglobin 13.8 no obvious bleeding, WBC count 10.8, lipase 5965, mild elevated LFT AST 38 ALT 39 bilirubin normal. Pancreatitis symptoms with elevated lipase. IV hydration at 75 cc an hour. Patient has PE right lower lung to be managed per attending. Plan Pancreatic biopsies pending from EUS and biopsy 3 days ago N.p.o. for now ,clear liquids in a.m. unless patient starts vomiting then n.p.o. IV fluids continue 75 cc an hour of hydration Monitor labs and recheck lipase in the morning Encourage patient to turn in bed to maintain her mobility Further recommendations to follow Patient was seen per myself and Dr. Kelley note was written on his behalf (Yaneth Hughes) Physician Comments Patient seen and examined Agree with above Continue with current supportive care Monitor labs Await biopsies (Kirill Kelley MD) Yaneth Hughes July 19, 2017 17:15 Kirill Kelley MD July 19, 2017 23:05
[2017-07-19] MEDS: MORPHINE SULFATE 4 MG/ML INJ IV PUSH PRN (19:46)
[2017-07-19] MEDS: SODIUM CHLORIDE 0.9% FLUSH 10 ML FLUSH IV FLUSH SCH (19:52)
[2017-07-19] MEDS: amLODIPine BESYLATE 5 MG TAB PO SCH (21:36)
[2017-07-19] MEDS: PANTOPRAZOLE SOD 20 MG DELAYED RELEASE TAB PO SCH (21:36)
[2017-07-19] MEDS: traZODone HCL 50 MG TAB PO SCH (21:36)
[2017-07-19] MEDS: ZOLPIDEM TARTRATE 5 MG TAB PO PRN (23:41)
[2017-07-20] VITALS (7 sets, daily range): BP systolic 110–151; BP diastolic 58–72; PULSE 66–81; RESP 16–18; TEMP 98.2–98.8; O2SAT 93–96
[2017-07-20] MEDS: MORPHINE SULFATE 4 MG/ML INJ IV PUSH PRN ×3 (03:05→10:15)
[2017-07-20] MEDS: SODIUM CHLOR 0.9% 1000 ML INJ 1,000 ML IV SCH ×2 (03:06→16:56)
[2017-07-20] MEDS: ENOXAPARIN SODIUM 80 MG/0.8 ML SYRINGE SQ SCH ×2 (03:06→14:15)
[2017-07-20] MEDS: SODIUM CHLORIDE 0.9% FLUSH 10 ML FLUSH IV FLUSH SCH ×2 (08:21→20:40)
[2017-07-20] MEDS: INSULIN ASPART SUPPLEMENTAL SCALE SQ SCH ×4 (08:21→22:27)
[2017-07-20] MEDS: PANTOPRAZOLE SOD 20 MG DELAYED RELEASE TAB PO SCH ×2 (08:21→20:40)
[2017-07-20] MEDS: LOSARTAN 25 MG TAB PO SCH (08:21)
--- NOTE | 2017-07-20 12:03 | HHI.PR ---
Subjective Remarks Patient reports that her abdominal pain is better. No nausea or vomiting. Breathing comfortably on room air. Objective Vitals Vital Signs Date Time Temp Pulse Resp B/P (MAP) Pulse Ox O2 Delivery O2 Flow Rate FiO2 07/20/17 08:00 71 07/20/17 08:00 98.8 75 16 110/59 (76) 93 07/20/17 04:00 98.7 79 18 124/60 (81) 94 07/20/17 00:00 75 07/19/17 23:44 97.9 77 16 153/68 (96) 94 07/19/17 20:20 74 07/19/17 20:10 94 21 07/19/17 20:00 98.9 79 18 131/64 (86) 94 07/19/17 16:06 98.0 74 18 154/67 (96) 94 07/19/17 15:53 07/19/17 15:26 71 19 141/63 (89) 95 Room Air 07/19/17 13:07 19 Result Diagram: 07/19/17 0950 07/19/17 0950 Objective Remarks GENERAL: This is a well-nourished, well-developed patient, in no apparent distress. CARDIOVASCULAR: Normal rate and regular rhythm without murmurs, gallops, or rubs. RESPIRATORY: Good respiratory efforts. Breath sounds equal and clear to auscultation bilaterally. GASTROINTESTINAL: Abdomen soft, mild epigastric tenderness to palpation. Normal and active bowel sounds. MUSCULOSKELETAL: Extremities without cyanosis, or edema. NEURO: Alert & Oriented x4 to person, place, time, situation. Moves all ext x4 PSYCH: Appropriate mood and affect. A/P Problem List: (1) Pulmonary embolus ICD Code: I26.99 - Other pulmonary embolism without acute cor pulmonale (2) Pancreatitis ICD Code: K85.90 - Acute pancreatitis without necrosis or infection, unspecified (3) Pancreatic mass ICD Code: K86.9 - Disease of pancreas, unspecified (4) Hypertension ICD Code: I10 - Essential (primary) hypertension (5) Diabetes ICD Code: E11.9 - Type 2 diabetes mellitus without complications Assessment and Plan 77-year-old female with a newly diagnosed pancreatic mass. Patient is status post endoscopic ultrasound-guided biopsy. She has developed pancreatitis. Workup also positive for right lobe pulmonary embolus. Pancreatitis/pancreatic mass: - Pancreatitis likely the result of EUS/biopsy. - Pain control. Supportive care with IV fluid. - Pathology is pending. - GI following. Advance to clear liquid diet. Lipase improving Pulmonary embolism: - Risk factors include possible malignancy. -Continue treatment with Lovenox 1 mg/kg every 12 hours. If malignancy workup negative, can likely transition to Xarelto. - LE ultrasound negative Diabetes: - Sliding scale insulin with Accu-Cheks. Hold metformin Hypertension: -Continue home dose antihypertensives. Discharge Planning Possible discharge tomorrow. Brant Avila MD July 20, 2017 12:03
[2017-07-20] MEDS ORDERED: ACETAMINOPHEN/HYDROcodone 325 MG/5 MG TAB PO PRN (14:00)
--- NOTE | 2017-07-20 14:23 | HHI.GIFU ---
Subjective Remarks Pt resting in bed, family at bedside Reports some improvement in pain Started on clear liquids this AM Denies nausea, vomiting (Sofi Savage) Objective Vitals I&O Vital Signs Date Time Temp Pulse Resp B/P (MAP) Pulse Ox O2 Delivery O2 Flow Rate FiO2 07/20/17 12:00 81 07/20/17 12:00 98.4 81 16 122/58 (79) 94 07/20/17 08:00 71 07/20/17 08:00 98.8 75 16 110/59 (76) 93 07/20/17 04:00 98.7 79 18 124/60 (81) 94 07/20/17 00:00 75 07/19/17 23:44 97.9 77 16 153/68 (96) 94 07/19/17 20:20 74 07/19/17 20:10 94 21 07/19/17 20:00 98.9 79 18 131/64 (86) 94 07/19/17 16:06 98.0 74 18 154/67 (96) 94 07/19/17 15:53 07/19/17 15:26 71 19 141/63 (89) 95 Room Air Laboratory Laboratory Tests Test 07/20/17 05:23 Lipase 1755 Imaging Last Impressions Lower Extremity Ultrasound 07/19/17 0000 Signed Impressions: CONCLUSION: 1. The study is negative for bilateral lower extremity deep venous thrombosis. Aorta CTA 07/19/17 0000 Signed Impressions: CONCLUSION: 1. Small volume acute pulmonary emboli involving the right lower lobe. Aorta i s normal in caliber. Physical Exam HEENT: Normocephalic; atraumatic CHEST: Even/unlabored CARDIAC: RRR ABDOMEN: Mildly distended, upper abdominal tender to palpation, bowel sounds active EXTREMITIES: No clubbing, cyanosis, or edema. SKIN: Normal; no rash; no jaundice. WOOD AND HARDWARE OUTFITTER: Alert and oriented times three. (Sofi Savage) Assessment and Plan Plan Assessment: - Pancreatic mass S/P EUS biopsy with post procedure pancreatitis Patient has been having back pain, saw orthopedic Dr. Curry who ordered MRI which identified a pancreatic mass, pt had an EUS done by Dr. Kelley at [facility], outpatient on 07/16 CA 19-9 (June 12) 17 CEA-4 MR abdomen W and W/O contrast (06/12) Abnormal dilation of the pancreatic duct up to the neck of the pancreas with an abrupt transition. A discrete pancreatic head mass cannot be be clearly identified but there was suggestion of a possible intraductal lesions on MR lumbar spine. At least 2 punctate areas of enhancement identified in the left and right hepatic lobes which are too small to accurately characterized and are not clearly identified on the precontrast images. Recommend MR abdomen W and WO gadolinium in 3 months. MR lumbar spine (06/11) Abnormal dilatation of the main pancreatic duct with possible obstructing mass in the region of the pancreatic head, suspicious for malignant process. EUS (07/16)--> Dilated pancreatic duct, pancreatic mass S/P FNA. No lymphadenopathy Denies family history of pancreatic cancer, denies ETOH. Patient complaining of abdominal pain that began Thursday, was advised by Dr. Kelley to go to ER. Lipase was found to be elevated. (07/20) Lipase trending down, currently 1755. Some improvement in abdominal pain. Started on clear liquids this AM, denies nausea, vomiting. Pancreatic mass biopsy still pending Plan EUS biopsy pending Clear liquids Pain control Antiemetics PRN Monitor labs Further recommendations based on clinical course and results of above Patient has been seen and examined by myself and Dr. Coates and this note is written on his behalf (Sofi Savage) Physician Comments Seen and examined with JAYMIE, tolerating clears asking to advance diet. Cytology pending. Discussed with pt. and family at the bedside. (Karie Coates MD) Sofi Savage July 20, 2017 14:23 Karie Coates MD July 20, 2017 17:10
[2017-07-20] MEDS: traZODone HCL 50 MG TAB PO SCH (20:40)
[2017-07-20] MEDS: amLODIPine BESYLATE 5 MG TAB PO SCH (20:40)
[2017-07-20] MEDS: ZOLPIDEM TARTRATE 5 MG TAB PO PRN (22:23)
[2017-07-21] VITALS: BP 135/65; PULSE 66; RESP 18; TEMP 97.6; O2SAT 97
[2017-07-21] MEDS: ENOXAPARIN SODIUM 80 MG/0.8 ML SYRINGE SQ SCH (03:01)
[2017-07-21 04:30] VITALS: BP 127/68; PULSE 75; RESP 16; TEMP 98; O2SAT 95
[2017-07-21] MEDS: SODIUM CHLOR 0.9% 1000 ML INJ 1,000 ML IV SCH (05:53)
[2017-07-21 08:00] VITALS: BP 130/60; PULSE 71; RESP 16; TEMP 98.1; O2SAT 96
[2017-07-21] MEDS: INSULIN ASPART SUPPLEMENTAL SCALE SQ SCH (08:00)
[2017-07-21] MEDS: SODIUM CHLORIDE 0.9% FLUSH 10 ML FLUSH IV FLUSH SCH (09:00)
[2017-07-21] MEDS: LOSARTAN 25 MG TAB PO SCH (09:30)
[2017-07-21] MEDS: PANTOPRAZOLE SOD 20 MG DELAYED RELEASE TAB PO SCH (09:30)
--- NOTE | 2017-07-21 09:46 | HHI.GIFU ---
Subjective Remarks Pt standing in room Reports some continued improvement in pain, has not needed any pain medication today Denies nausea, vomiting Tolerating regular diet States would like to have a BM, just drank prune juice, advised she has medication ordered as needed if no relief with the prune juice (Sofi Savage) Objective Vitals I&O Vital Signs Date Time Temp Pulse Resp B/P (MAP) Pulse Ox O2 Delivery O2 Flow Rate FiO2 07/21/17 04:30 98.0 75 16 127/68 (87) 95 07/21/17 00:00 97.6 66 18 135/65 (88) 97 07/20/17 23:00 66 07/20/17 21:15 98.4 70 17 150/72 (98) 96 07/20/17 16:00 68 07/20/17 16:00 98.2 75 16 151/68 (95) 96 07/20/17 12:00 81 07/20/17 12:00 98.4 81 16 122/58 (79) 94 I/O 07/20/17 07/20/17 07/20/17 07/21/17 07/21/17 07/21/17 07:00 15:00 23:00 07:00 15:00 23:00 Intake Total 800 ml 600 ml Balance 800 ml 600 ml Intake Oral 800 ml 600 ml # Voids 3 3 4 # Bowel Movements 0 0 Imaging Last Impressions Lower Extremity Ultrasound 07/19/17 0000 Signed Impressions: CONCLUSION: 1. The study is negative for bilateral lower extremity deep venous thrombosis. Aorta CTA 07/19/17 0000 Signed Impressions: CONCLUSION: 1. Small volume acute pulmonary emboli involving the right lower lobe. Aorta i s normal in caliber. Physical Exam HEENT: Normocephalic; atraumatic CHEST: Even/unlabored CARDIAC: RRR ABDOMEN: Mildly distended, upper abdominal tender to palpation, bowel sounds active EXTREMITIES: No clubbing, cyanosis, or edema. SKIN: Normal; no rash; no jaundice. TRACE CLERK: Alert and oriented times three. (Sofi Savage) Assessment and Plan Plan Assessment: - Pancreatic mass S/P EUS biopsy with post procedure pancreatitis Patient has been having back pain, saw orthopedic Dr. Curry who ordered MRI which identified a pancreatic mass, pt had an EUS done by Dr. Kelley at [facility], outpatient on 07/16 CA 19-9 (June 12) 17 CEA-4 MR abdomen W and W/O contrast (06/12) Abnormal dilation of the pancreatic duct up to the neck of the pancreas with an abrupt transition. A discrete pancreatic head mass cannot be be clearly identified but there was suggestion of a possible intraductal lesions on MR lumbar spine. At least 2 punctate areas of enhancement identified in the left and right hepatic lobes which are too small to accurately characterized and are not clearly identified on the precontrast images. Recommend MR abdomen W and WO gadolinium in 3 months. MR lumbar spine (06/11) Abnormal dilatation of the main pancreatic duct with possible obstructing mass in the region of the pancreatic head, suspicious for malignant process. EUS (07/16)--> Dilated pancreatic duct, pancreatic mass S/P FNA. No lymphadenopathy Denies family history of pancreatic cancer, denies ETOH. Patient complaining of abdominal pain that began Thursday, was advised by Dr. Kelley to go to ER. Lipase was found to be elevated. (07/20) Lipase trending down, currently 1755. Some improvement in abdominal pain. Started on clear liquids this AM, denies nausea, vomiting. Pancreatic mass biopsy still pending (07/21) Pt reports continued improvement in abdominal pain today, has not needed any medication yet. Denies nausea, vomiting. Tolerating regular diet. Would like to have a BM, trying prune juice before medication. Pancreatic mass biopsy still pending. Labs from today are pending. Plan CB EUS biopsy pending Pain control Antiemetics PRN Monitor labs GI will sign off, please reconsult as needed Have pt follow up with GI after DC regarding biopsy results Patient has been seen and examined by myself and Dr. Coates and this note is written on his behalf (Sofi Savage) Physician Comments Seen and examined with LINE OUT WORKER, pancreatitis improving. Advance to low fat diet. Cytology-p. GI will sign off, gi fu upon dc. Thank you (Karie Coates MD) Sofi Savage July 21, 2017 09:46 Karie Coates MD July 21, 2017 12:10
--- NOTE | 2017-07-21 10:39 | HHI.DCPOC ---
Discharge Care Plan Diagnosis: (1) Pancreatitis (2) Pulmonary embolus (3) Hypertension (4) Diabetes (5) Pancreatic mass Goals to Promote Your Health * To prevent worsening of your condition and complications * To maintain your health at the optimal level Directions to Meet Your Goals Take your medications as prescribed Follow your dietary instruction Follow activity as directed Keep your appointments as scheduled Take your immunizations and boosters as scheduled If your symptoms worsen call your PCP, if no PCP go to Urgent Care Center or Emergency Room Smoking is Dangerous to Your Health. Avoid second hand smoke Call the 24-hour hour crisis hotline for domestic abuse at Brant Avila MD July 21, 2017 10:39
--- NOTE | 2017-07-21 10:40 | HHI.DS ---
Discharge Summary Admission Date July 19, 2017 at 13:59 Discharge Date: July 21, 2017 Admitting Diagnosis Pancreatitis, Pulmonary Embolism (1) Pulmonary embolus ICD Code: I26.99 - Other pulmonary embolism without acute cor pulmonale (2) Pancreatitis ICD Code: K85.90 - Acute pancreatitis without necrosis or infection, unspecified (3) Pancreatic mass ICD Code: K86.9 - Disease of pancreas, unspecified (4) Hypertension ICD Code: I10 - Essential (primary) hypertension (5) Diabetes ICD Code: E11.9 - Type 2 diabetes mellitus without complications Procedures None Brief History - From Admission 77-year-old female with a medical history significant for hypertension, diabetes , newly found pancreatic mass status post biopsy 3 days ago presented to the emergency room with complaint of midepigastric pain. Patient underwent endoscopic ultrasound-guided biopsy of a pancreatic mass 3 days ago. Patient reports pain started since the procedure. Workup in the emergency room shows pancreatitis and she is also positive for a right pulmonary embolus. She reports mild, intermittent shortness of breath but nothing that limits her regular activities. CBC/BMP: 07/19/17 0950 07/19/17 0950 Significant Findings Laboratory Tests Test 07/19/17 09:50 07/19/17 14:10 07/20/17 05:23 Neutrophils (%) (Auto) 71.2 % (16.0-70.0) Random Glucose 139 MG/DL (74-106) Total Protein 8.6 GM/DL (6.4-8.2) Aspartate Amino Transf (AST/SGOT) 38 U/L (15-37) Estimat Glomerular Filtration Rate 58 ML/MIN (>89) Lipase 5965 U/L (73-393) 1755 U/L (73-393) Imaging Last Impressions Lower Extremity Ultrasound 07/19/17 0000 Signed Impressions: CONCLUSION: 1. The study is negative for bilateral lower extremity deep venous thrombosis. Aorta CTA 07/19/17 0000 Signed Impressions: CONCLUSION: 1. Small volume acute pulmonary emboli involving the right lower lobe. Aorta i s normal in caliber. PE at Discharge GENERAL: This is a well-nourished, well-developed patient, in no apparent distress. CARDIOVASCULAR: Normal rate and regular rhythm without murmurs, gallops, or rubs. RESPIRATORY: Good respiratory efforts. Breath sounds equal and clear to auscultation bilaterally. GASTROINTESTINAL: Abdomen soft, nontender, nondistended. Normal and active bowel sounds. MUSCULOSKELETAL: Extremities without cyanosis, or edema. NEURO: Alert & Oriented x4 to person, place, time, situation. Moves all ext x4 PSYCH: Appropriate mood and affect. Pt update on day of discharge Patient reports she is feeling okay today. Minimal abdominal discomfort. No nausea vomiting. She is tolerating her diet. Hospital Course 77-year-old female with a newly diagnosed pancreatic mass. Patient is status post endoscopic ultrasound-guided biopsy. She has developed pancreatitis. Workup also positive for right lobe pulmonary embolus. Treatment course detailed below: Pancreatitis/pancreatic mass: - Pancreatitis likely the result of EUS/biopsy. -Patient was treated with supportive care including IV fluid and pain control. Symptoms and lipase significantly improved. Her diet advanced. - GI followed the patient. She will follow with them outpatient for biopsy results. Pulmonary embolism: - Risk factors include possible malignancy. - Patient initially treated with Lovenox. She was transitioned to Xarelto. We discussed anticoagulation options at length and she opted for newer agent, Xarelto. - LE ultrasound negative - She is to follow-up outpatient with PCP and GI. She was counseled that if in fact she does have a malignancy, she may need to be transitioned back to Lovenox. Also advised patient to have PCP refer her to hematology for further workup if indicated. Diabetes: - Sliding scale insulin with Accu-Cheks. Resume metformin on discharge. Hypertension: -Continue home dose antihypertensives. Pt Condition on Discharge: Good Discharge Disposition: Discharge Home Discharge Time: <= 30 minutes Discharge Instructions DIET: Follow Instructions for: Heart Healthy Diet Activities you can perform: Regular-No Restrictions Follow up Referrals: Gastroenterology PCP Follow-up New Medications: Rivaroxaban (Xarelto) 15 Mg Tab 15 MG PO Q12HR for Blood Clot Prevention, #42 TAB 0 Refills Rivaroxaban (Xarelto) 20 Mg Tab 20 MG PO DAILY for Blood Clot Prevention, #30 TAB 0 Refills Start in 21 days, after you finished the 15 mg tablets Continued Medications: Amlodipine (Amlodipine) 5 Mg Tab 5 MG PO HS for Blood Pressure Management, #30 TAB 0 Refills Bethanechol (Bethanechol) 10 Mg Tab 10 MG PO BID for STOMACH EMPTYING, TAB 0 Refills Cyclobenzaprine (Flexeril) 10 Mg Tab 10 MG PO TID PRN for MUSCLE SPASM, #21 TAB 0 Refills Gabapentin (Gabapentin) 600 Mg Tab 600 MG PO BID, #60 TAB 0 Refills Gabapentin (Gabapentin) 300 Mg Cap 300 MG PO DAILY, #60 CAP 0 Refills Losartan (Losartan) 25 Mg Tab 25 MG PO DAILY for Blood Pressure Management, #30 TAB 0 Refills Metformin (Metformin) 500 Mg Tab 1000 MG PO DAILY for Blood Sugar Management, #60 TAB 0 Refills Metformin (Metformin) 500 Mg Tab 500 MG PO HS for Blood Sugar Management, #30 TAB 0 Refills With a meal Pantoprazole (Pantoprazole) 20 Mg Tab 20 MG PO BID for Reflux, #30 TAB 0 Refills Trazodone (Trazodone) 50 Mg Tab 25 MG PO HS for Control Depression, #30 TAB 0 Refills Zolpidem (Ambien) 5 Mg Tab 5 MG PO HS PRN for INSOMNIA, TAB 0 Refills RimpeBrant walsh MD July 21, 2017 10:40
[2017-07-21] MEDS ORDERED: XARE15TA PO (10:50)
[2017-07-21] MEDS ORDERED: XARE20TA PO (10:50)
[2017-07-21 11:11] LABS: AUTOMATED NEUTROPHIL # 3.8 TH/MM3 (1.8-7.7); BASOPHIL % 0.3 % (0.0-2.0); EOSINOPHIL # 0.2 TH/MM3 (0-0.4); EOSINOPHIL % 3.2 % (0.0-4.0); HEMATOCRIT 39.6 % (35.0-46.0); HEMOGLOBIN 13.1 GM/DL (11.6-15.3); LYMPH % 22.1 % (9.0-44.0); LYMPHOCYTE # 1.2 TH/MM3 (1.0-4.8); MEAN CELL VOLUME 86.7 FL (80.0-100.0); MEAN CORPUSCULAR HEMOGLOBIN 28.7 PG (27.0-34.0); MEAN CORPUSCULAR HGB CONC 33.1 % (32.0-36.0); MEAN PLATELET VOLUME 9.1 FL (7.0-11.0); MONO % 6.2 % (0.0-8.0); MONOCYTE # 0.3 TH/MM3 (0-0.9); NEUT % 68.2 % (16.0-70.0); PLATELET COUNT 230 TH/MM3 (150-450); RED BLOOD COUNT 4.56 MIL/MM3 (4.00-5.30); RED CELL DISTRIBUTION WIDTH 14.2 % (11.6-17.2); WHITE BLOOD COUNT 5.6 TH/MM3 (4.0-11.0)
[2017-07-21 11:50] LABS: ALBUMIN 3.4 GM/DL (3.4-5.0); ALT (GPT) 31 U/L (10-53); AST (GOT) 19 U/L (15-37); BLOOD UREA NITROGEN 8 MG/DL (7-18); CALCIUM 9.1 MG/DL (8.5-10.1); CHLORIDE 104 MEQ/L (98-107); CREATININE 1.11 MG/DL (0.50-1.00); GLOMERULAR FILTRATION RATE 48 ML/MIN (>89); GLUCOSE,RANDOM 321 MG/DL (74-106); SODIUM (NA) 138 MEQ/L (136-145)
[2017-07-21 12:00] VITALS: BP 123/57; PULSE 76; RESP 16; TEMP 98.6; O2SAT 94
[2017-07-21 12:07] LABS: ALKALINE PHOSPHATASE 59 U/L (45-117); TOTAL BILIRUBIN ADULT 0.3 MG/DL (0.2-1.0); TOTAL PROTEIN 7.8 GM/DL (6.4-8.2)
[2017-07-21] MEDS ORDERED: HYDR-3516 PO (13:01)
== END 2017-07-21 13:26 | disposition home or self-care (01) | DRG 438 ==
LOC: NEPC 09:16 → NEDA 13:59 → N05A 15:54
PROVIDERS: ADMIT Family Medicine; ATTEND Family Medicine
DX: K85.90 Acute pancreatitis without necrosis or infection, unspecified (principal); I26.99 Other pulmonary embolism without acute cor pulmonale; K31.84 Gastroparesis; I10 Essential (primary) hypertension; E11.43 Type 2 diabetes mellitus with diabetic autonomic (poly)neuropathy; F41.9 Anxiety disorder, unspecified; G89.29 Other chronic pain; K86.9 Disease of pancreas, unspecified
CPT/HCPCS: 71275; 74174; 80053; 82948; 83690; 85025; 85610; 85730; 93005; 93970; 96374; 96376; J1650; J1815; J2270; J7030; Q9967